=== PATIENT | female | born 1970 | race African-American/Black ===

== ENCOUNTER → 2016-05-10 | Outpatient (CLI) | payer MEDICARE, OTHER ==
[~2016-05-10] MED LIST: AMBI10TA PO; CLIN1CAP6 PO; ERGO1CAP10 PO; LISI-363 PO; LISI-515 PO; LORA-373 PO; LORA-392 PO; PERC10TA27 PO; PERC7.5T13 PO; TAMO10TA2 PO; TAMO10TA6 PO
[2016-05-10 11:33] LABS: HEMATOCRIT 36.7 % (35.0-46.0); MEAN CELL VOLUME 88.6 FL (80.0-100.0); MEAN CORPUSCULAR HEMOGLOBIN 29.9 PG (27.0-34.0); MEAN CORPUSCULAR HGB CONC 33.8 % (32.0-36.0); PLATELET COUNT 220 TH/MM3 (150-450); RED BLOOD COUNT 4.14 MIL/MM3 (4.00-5.30); RED CELL DISTRIBUTION WIDTH 14.1 % (11.6-17.2); REVIEW FLAG FINAL; WHITE BLOOD COUNT 4.9 TH/MM3 (4.0-11.0)
[2016-05-10 12:03] LABS: BICARBONATE 27.5 MEQ/L (21.0-32.0)
== END ==
LOC: CPRE 09:57
PROVIDERS: ATTEND Plastic Surgery
DX: Z98.890 Other specified postprocedural states (principal); Z98.82 Breast implant status
CPT/HCPCS: 36415; 80051; 85027

== ENCOUNTER 2016-05-14 05:47 | Observation (INO) | payer MEDICARE, OTHER ==
[~2016-05-14] VITALS: Ht 172.7 cm; Wt 125.0 kg
[~2016-05-14 05:47] MED LIST changes: -CLIN1CAP6 PO; -LISI-363 PO; -LORA-392 PO; -PERC7.5T13 PO; -TAMO10TA2 PO
[2016-05-14] MEDS ORDERED: INSULIN HUMAN REGULAR 1,000 UNITS/10 ML VIAL SQ PRN (06:15)
[2016-05-14] MEDS: LACTATED RINGER'S 1000 ML IV SCH (06:15)
[2016-05-14] MEDS ORDERED: METOPROLOL TARTRATE 25 MG TAB PO PRN (06:15)
[2016-05-14] MEDS: SODIUM CHLORID 0.9% 500 ML IV SCH ×2 (06:15→22:55)
[2016-05-14 06:23] VITALS: BP 160/105; PULSE 89; RESP 20; TEMP 97.9; O2SAT 99
[2016-05-14] MEDS ORDERED: SODIUM CHLORIDE 0.9% INJ 100 ML ONE (07:26)
[2016-05-14] MEDS ORDERED: ACETAMINOPHEN 1000 MG/100 ML VIAL IV ONE (08:10)
[2016-05-14] MEDS ORDERED: FAMOTIDINE 20 MG/2 ML VIAL ONE (08:10)
[2016-05-14] MEDS ORDERED: MIDAZOLAM HCL 2 MG/2 ML VIAL ONE (08:11)
[2016-05-14] MEDS ORDERED: DEXAMETHASONE SOD PHOS 4 MG/ML VIAL ONE (08:11)
[2016-05-14] MEDS ORDERED: CLINDAMYCIN 600 MG/NS 100 ML IV SCH ×2 (08:30)
[2016-05-14] MEDS ORDERED: LIDOCAINE 1%/EPINEPHrine 1:100,000 SOLN 30 ML VIAL INFIL ONE (08:58)
--- NOTE | 2016-05-14 09:03 | MH ---
cc: SHANTAL SEPULVEDA M.D. DATE OF ADMISSION: 05/14/2016 DATE OF 1970 CHIEF COMPLAINT Bulky right chest wall flap near anterior axillary line, status post mastectomy for breast cancer. The patient desiring debulking of the flap and reshaping of the area. HISTORY This is a 45-year-old black female who originally started out approximately in 2011 with multiple right breast lumps. 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 In 2011 she had lost approximately 10 pounds of weight, even though she is fairly morbidly obese. The patient also was diagnosed with multiple breast lumps on the right side, underwent a needle-guided biopsy. One of the biopsies was diagnosed as an abscess and she was discharged with appropriate treatment for that. However, a secondary biopsy taken around the same time ended up showing infiltrating ductal carcinoma. She subsequently underwent surgery with a right mastectomy and tissue grinder set up operator placement in the end of the year. By May the grinder set up operator had become infected with significant drainage coming out of the surgical wound. The grinder set up operator was removed and discarded. Subsequent to that she had numerous recurrent abscesses and debridements in the area, went on for 2-3 months with multiple surgeries. By September of 2012 she had a wide debridement of the right chest wall and eventually she, with the combination of long-term IV antibiotics, gammaglobulin treatments and wound care, she managed to heal the area with heavy scar tissue. She had difficulty moving the right shoulder, strap muscles and initially she was treated with physical therapy, massage and Kenalog injections. Eventually she needed a scar excision and a rotation flap surgery on the right side. The flap was designed from the lateral chest wall adjacent to the mastectomy scar using the tissue all the way back to the posterior axillary line. The flap took a while to heal but overall survived and has currently healed completely. The patient has much better range of motion of the upper extremity on the right side; however, the bulk of the flap is bothering her particularly when she tries to lay on the right side and also when her arm is to her side. The patient wishes to go ahead and debulk the area and reshape the flap. She understands that, due to her underlying immunocompromise, she is at high risk for postoperative complications, particularly during traction on the bleeding, also the flap can be devitalized with a second surgery and she may lose all of the flap as well, resulting in further wound care and surgery. She is willing to take that chance. She has been also simultaneously undergoing care with the medically side. A PICC line has been placed in the last week and she will be getting gammaglobulin treatment as per recommendation of her medical doctor. PAST MEDICAL HISTORY Significant for the 1. Immunoglobulin deficiency. 2. Morbid obesity. 3. Multiple gastric ulcers, duodenitis. 4. in the past. 5. Multiple infections of the skin on the extremities. 6. Multiple surgeries of the right breast. The patient was history of multiple drug allergies developed to multiple antibiotics including - SULFA. LEVAQUIN. CIPRO. VANCOMYCIN. MEDICATIONS Antihypertensive. Antacids. PHYSICAL EXAMINATION Vital Signs: Examination shows a 45-year-old black female with stable vital signs. General: The patient is alert, cooperative, fully oriented. She is fully ambulant, emotionally stable. Head and Neck: Clear sclerae. Pupils are equal, round, reacting to room light. No masses noted in the neck, no thyromegaly. The neck movements are adequate. Chest: The chest was good expansion with normal breathing, normal breath sounds, normal heart sounds. No carotid bruits. Abdomen: Protuberant. No active skin masses. Extremities: The lower extremities are grossly intact. Breasts: Examination of the right breast shows the multiple surgical scars and a local fascial-fat rotation flap vertically based at the anterior axillary line. Most of the bulk is present at the anterior axillary line. The midaxillary line and posterior axillary fold area scar is somewhat thick and hypertrophic but otherwise well healed. The underlying rib cage does not seem to be tender. No crepitus or cyanosis, fluid collection or hardening of the tissue is noted. The rest of the examination is otherwise within normal limits. CLINICAL IMPRESSION: Bilateral mastectomy, right chest wall debridement following reconstruction, multiple abscesses, Right chest wall flap reconstruction from the side of the chest wall with a bulky flap. PLAN The plan is to debulk the flap. The medial inferior and part of superior edges will be elevated and flap lifted and advanced medially and excess to be removed.. The patient's laboratory tests will be reviewed when available on the chart. signed, not fully reviewed MD CHELA Allred/IRASEMA /9:09 PM /8:56 AM [email or web address]
[2016-05-14] MEDS ORDERED: *morphine SULFATE 8 MG/ML PERIprocedure ONLY ONE (10:34)
[2016-05-14] MEDS ORDERED: MORPHINE SULFATE 8 MG/ML INJ IV PUSH ONE (10:35)
[2016-05-14] MEDS ORDERED: *HYDROmorphone PF 1 MG VIAL PERIprocedural Use ONLY ONE ×3 (10:41→11:03)
[2016-05-14] MEDS ORDERED: *PROMETHAZINE 25 MG/ML VIAL PERIprocedural use ONLY ONE (10:42)
[2016-05-14] MEDS ORDERED: MORPHINE SULFATE 4 MG/ML INJ ONE (10:44)
[2016-05-14] MEDS ORDERED: HYDROmorphone HCL PF 1 MG/ML VIAL IV PUSH ONE ×2 (10:44→10:53)
[2016-05-14] MEDS ORDERED: fentaNYL CITRATE 250 MCG/5 ML AMP ONE (10:44)
[2016-05-14] MEDS ORDERED: oxyCODONE/ACETAMINOPHEN 7.5 MG/325 MG TAB PO PRN (10:45)
[2016-05-14] MEDS ORDERED: DO NOT ADM ANY ANTICOAGULANT DRUGS XX PRN (11:00)
[2016-05-14] MEDS ORDERED: ONDANSETRON HCL 4 MG/2 ML VIAL IV PUSH ONE (12:00)
[2016-05-14] MEDS ORDERED: NEOSTIGMINE 3 MG/3 ML SYR IV ONE (12:00)
[2016-05-14] MEDS ORDERED: PROPOFOL 200 MG/20 ML AMP IV ONE (12:00)
[2016-05-14] MEDS ORDERED: LACTATED RINGER'S 1000 ML INJ 1,000 ML IV ONE (12:00)
--- NOTE | 2016-05-14 12:09 | MP ---
cc: SHANTAL DAHL M.D. DATE OF SURGERY 05/14/2016 PREOPERATIVE DIAGNOSIS Bulky right chest wall flap. POSTOPERATIVE DIAGNOSIS Bulky right chest wall flap. OPERATION Re-elevation, debulking and reshaping and repositioning of right chest wall fasciocutaneous flap. SURGEON Dr. Dahl ANESTHESIA General. INDICATIONS This is a 45-year-old black female who has undergone multiple surgeries since 2012 for a right breast cancer. She has bilateral mastectomies. She initially had both sides with tissue expanders. The right side got infected and needed to be removed. Both sides were eventually removed. The right side had to be debrided multiple times leaving a large open wound to heal and she is immunocompromised from a blood disorder. The area was eventually healed with wound VAC and dressing changes, resulted in heavy scarring and restriction of the right arm movement. This area was excised. A rotational flap was taken from the side of the chest wall and the area has healed. Now the flap is stable. It is somewhat bulky and she has trouble putting her arm down. The current surgery is to debulk and repositioned the flap for her comfort. PROCEDURE The patient was brought to the operating room, was given supine position. Anesthesia was started. IV antibiotic had been given. Time-out was called and completed. Prep and drape was done. Preoperative markings were reinforced. The base of the flap is inferolateral. A line was drawn from the medial point going into the flap approximately 4-5 inches and the lower border of the flap and upper medial half of the flap border was incised after injecting lidocaine 1% with epi. The flap was elevated down to the chest wall, clearing it off the pectoralis major muscle and the lateral chest wall muscles. It was possible to stretch the flap over, move it medially by almost 2 inches providing a flat contour in the lateral chest wall anterior axillary fold area and the medial-most part of the chest wall has a scar approximately 2 inch vertical and 1 inch side to side. This scar was undermined as well. Part of the flap was placed at the upper border releasing the scarred area. The flap was gradually tapered into the defect. Portions of the flap overlying the chest wall muscle were gradually debrided and trimmed of all the fat to make it flush with the overall chest wall thickness. A small portion of flap needed to be removed. The rest of the flap was repositioned easily and suturing was done with 0 Vicryl, 3-0 Vicryl and 4-0 Prolene subcuticular running sutures. The cavity was approximated with deep imbricating sutures as well. No drain was used. The patient remained stable. Sterile dressing was applied. INTRAOPERATIVE BLOOD LOSS Less than 40 cc. COMPLICATIONS No complications. signed, not fully reviewed MD CHELA Allred/IRASEMA /10:18 AM /12:02 PM KEV
[2016-05-14] MEDS: HYDROmorphone HCL PF 1 MG/ML VIAL IV PUSH PRN ×2 (15:47→20:15)
[2016-05-14] MEDS: CLINDAMYCIN 600 MG/NS 100 ML IV SCH ×4 (15:47→20:08)
[2016-05-14 16:00] VITALS: BP 143/82; PULSE 98; RESP 19; TEMP 98.9; O2SAT 100
[2016-05-14] MEDS ORDERED: LORazepam 0.5 MG TAB PO PRN (16:45)
[2016-05-14] MEDS ORDERED: ZOLPIDEM TARTRATE 10 MG TAB PO PRN (17:00)
[2016-05-14 20:05] VITALS: BP 142/95; PULSE 80; RESP 18; TEMP 97.8; O2SAT 96
[2016-05-14] MEDS: TAMOXIFEN CITRATE 10 MG TAB PO SCH (20:12)
[2016-05-14 23:36] VITALS: BP 140/73; PULSE 72; RESP 18; TEMP 97.8; O2SAT 98
[2016-05-15] MEDS: HYDROmorphone HCL PF 1 MG/ML VIAL IV PUSH PRN ×3 (01:17→09:04)
[2016-05-15 03:31] VITALS: BP 138/83; PULSE 69; RESP 18; TEMP 97.7; O2SAT 96
[2016-05-15] MEDS: CLINDAMYCIN 600 MG/NS 100 ML IV SCH ×4 (05:08→13:01)
[2016-05-15] MEDS: LACTATED RINGER'S 1000 ML IV SCH (06:15)
[2016-05-15] MEDS: TAMOXIFEN CITRATE 10 MG TAB PO SCH (08:03)
[2016-05-15 08:07] VITALS: BP 168/92; PULSE 75; RESP 19; TEMP 97.8; O2SAT 97
[2016-05-15] MEDS ORDERED: LISINOPRIL 20 MG TAB PO SCH (09:00)
[2016-05-15 12:00] VITALS: BP 131/68; PULSE 63; RESP 19; TEMP 97.7; O2SAT 96
--- NOTE | 2016-05-15 13:42 | PD.PLAS.PN ---
Subjective Remarks Patient stable, afebrile pain moderate to mild Right chest - flap viable and soft, mild swelling, no hematoma. OK to DC home. She can drive - no pain meds for over 4 hours. FU Friday in office - Vital Signs Date Time Temp Pulse Resp B/P Pulse Ox O2 Delivery O2 Flow Rate FiO2 05/15/16 12:00 97.7 63 19 131/68 96 05/15/16 09:34 20 05/15/16 08:07 97.8 75 19 168/92 97 05/15/16 03:31 97.7 69 18 138/83 96 05/14/16 23:36 97.8 72 18 140/73 98 05/14/16 20:05 97.8 80 18 142/95 96 05/14/16 16:00 98.9 98 19 143/82 100 I/O 05/14/16 05/14/16 05/14/16 05/15/16 05/15/16 05/15/16 07:00 15:00 23:00 07:00 15:00 23:00 Intake Total 1250 ml 480 ml 680 ml 120 ml Output Total 40 ml Balance 1210 ml 480 ml 680 ml 120 ml Intake Oral 480 ml 480 ml 120 ml IV Total 250 ml 0 ml 200 ml Other 1000 ml Output Urine Total 0 ml Estimated Blood Loss 40 ml # Voids 1 2 Jaime Dahl MD May 15, 2016 13:42
[2016-05-15] MEDS ORDERED: PERC7.5T13 PO (14:00)
[2016-05-15] MEDS ORDERED: CLIN1CAP6 PO (14:00)
[2016-05-17] MEDS ORDERED: ERGOCALCIFEROL (VIT D2) 50,000 UNIT CAP PO SCH (09:00)
== END 2016-05-15 14:32 | disposition home or self-care (01) ==
LOC: HSDC 05:47 → N07A 13:52
PROVIDERS: ADMIT Plastic Surgery; ATTEND Plastic Surgery
DX: Z98.890 Other specified postprocedural states (principal); C50.911 Malignant neoplasm of unspecified site of right female breast; D89.9 Disorder involving the immune mechanism, unspecified; I10 Essential (primary) hypertension; Z90.13 Acquired absence of bilateral breasts and nipples; Z88.9 Allergy status to unspecified drugs, medicaments and biological substances; Z87.11 Personal history of peptic ulcer disease
CPT/HCPCS: 00300; 15734; G0378; J0131; J1100; J1170; J2250; J2270; J2405; J2550; J2710; J3010; J7120